=== PATIENT | female | born 1970 | race Caucasian/White ===

== ENCOUNTER 2024-06-01 09:46 | Outpatient (AMB) | payer OTHER, SELFPAY ==
--- NOTE | 2024-06-01 09:49 | MHC.OFFVIS ---
Vital Signs 06/01/24 09:50 Height 5 ft 1 in Weight 180 lb BMI 34.0 Intake Visit Reasons: BUSINESS PROCESS ASSOCIATE, Left ankle injury Intake Note: Uma is a 54 yo right hand dominant female who presents today for an ED evaluation s/p left ankle injury, DOI 05/30/24. Patient reports she was in [place] for a work trip when she tripped while walking, injuring her left ankle. Patient states she got home yesterday and has limited how much weight she puts on her ankle. She is currently using crutches and a boot given by the ED. She has been taking Tylenol Extra strength every 4 hours and Ibuprofen 800 TID for pain, with relief. Denies numbness or tingling. Patient reports she injured a tendon in her left ankle as a child. Allergies No Known Allergies Allergy (Verified 06/01/24 09:50) HPI HPI BUSINESS PROCESS ASSOCIATE, Left ankle injury: Details: Uma is a 54 yo right hand dominant female who presents today for an ED evaluation s/p left ankle injury, DOI 05/30/24. Patient reports she was in [place] for a work trip when she tripped while walking, injuring her left ankle. Patient states she got home yesterday and has limited how much weight she puts on her ankle. She is currently using crutches and a boot given by the ED. She has been taking Tylenol Extra strength every 4 hours and Ibuprofen 800 TID for pain, with relief. Denies numbness or tingling. Patient reports she injured a tendon in her left ankle as a child. [facility] Social History (Updated 06/01/24 @ 09:56 by AUSTIN Soto) Current occupational status: employed Current occupation: rt handed Physical Exam Vital Signs: BMI result Body Mass Index 34.0 Extrem Other: Mild circumferential left ankle swelling Tenderness to palpation distal tip of the lateral malleolus Results Reviewed Results Reviewed: I personally reviewed relevant radiographs. Nondisplaced fracture of the distal lateral malleolus consistent with a Day A ankle fracture Assessment & Plan Assessment & Plan (1) Fractured lateral malleolus: Code(s): S82.63XA - Displaced fracture of lateral malleolus of unspecified fibula, initial encounter for closed fracture Category: Medical Plan: This is a 54-year-old woman with a lateral malleolus fracture of her left ankle. It is a Day a distal and nondisplaced. I recommend weight-bearing as tolerated in a boot. 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 She can follow up in 4 weeks if she is having pain. Coding Level of Care Code New Pt Level 3 (52129) Diagnoses Fractured lateral malleolus S82.63XA
[2024-06-01 09:50] VITALS: BMI 34.0
== END 2024-06-01 12:27 | disposition home or self-care (01) ==
PROVIDERS: PCP Pediatrics; Visit Provider Orthopaedic Surgery
DX: S82.63XA Displaced fracture of lateral malleolus of unspecified fibula, initial encounter for closed fracture (principal); W01.0XXA Fall on same level from slipping, tripping and stumbling without subsequent striking against object, initial encounter; Z04.2 Encounter for examination and observation following work accident
CPT/HCPCS: 99203

== ENCOUNTER 2024-06-01 09:46 | Outpatient (REF) | payer OTHER, SELFPAY | END 2024-06-01 09:47 | disposition home or self-care (01) | LOC: HO.HOSX 09:46 | PROVIDERS: PCP Pediatrics; Visit Provider Orthopaedic Surgery | DX: Z13.89 Encounter for screening for other disorder (principal) ==